=== PATIENT | female | born 1950 | race African-American/Black ===

== ENCOUNTER → 2017-02-04 | Outpatient (CLI) | payer MEDICARE, BC ==
[~2017-02-04] MED LIST: ASPIRIN PO; DOXYCYCLINE PO; EVISTA60 MG PO; LIPITOR PO; METFORMIN PO; NEXIUM PO; RONDEC-DM ORAL30 ML PO; ZESTORETIC 20/21 TAB PO; ZOLOFT PO
--- NOTE | ~2017-02-04 | MY11 ---
[facility] A Service [facility] RADIOLOGY TEXT RESULTS PATIENT: SHERICE PAIZ LOCATION: [facility] : 46 UNIT #: [id number] AGE: [address]: Daphne Zhao MD SEX: F ORDER DR: [id number] [place] [id number] O MR#: [id number] Acc #: [id number] NAME: SHERICE PAIZ : 1950 SEX: F STUDY DATE/TIME: 02/04/2017 11:47 UNIT: [facility] ROOM: STUDY DESCRIPTION: MY Mammogram Screening Dig Dao Attending Physician: Daphne Zhao M.D. Referring Physician: aDphne Zhao M.D. Ordering Physician: Daphne Zhao M.D. Primary Care Physician: Daphne Zhao M.D. MEDICAL IMAGING REPORT This report is preliminary unless electronic signature is present. EXAM Bilateral digital screening mammogram with CAD. INDICATION Breast cancer screening. 66-year-old asymptomatic female. No personal or family history of breast cancer. COMPARISON 04/14/2015, 11/08/2013, 09/04/2012, 07/16/2011, 07/11/2010. FINDINGS The breasts are almost entirely fatty. No suspicious findings are present. IMPRESSION No mammographic evidence of malignancy. Annual screening mammography and clinical breast exam are recommended. A result letter will be sent to the patient. Patients over the age of 40 are entered into a reminder system with target due date for the next mammogram. BIRADS: 1 Negative Dictated by... Alex Edmondson M.D. THIS IS AN ELECTRONICALLY VERIFIED REPORT Alex Edmondson M.D. at 02/04/2017 8:55 PM ERIK/mari [facility] A Service [facility] RADIOLOGY TEXT RESULTS PATIENT: SHERICE PAIZ LOCATION: [facility] : 46 UNIT #: [id number] AGE: [address]: Daphne Zhao MD SEX: F ORDER DR: TD: 02/04/2017 16:06 JOB #: [id number] MEDICAL IMAGING REPORT
== END | disposition home or self-care (01) ==
LOC: SMAM 11:17
DX: Z12.31 Encounter for screening mammogram for malignant neoplasm of breast (principal)
CPT/HCPCS: G0202